=== PATIENT | male | born 1995 | race Asian ===

== ENCOUNTER 2017-08-22 02:08 | Emergency (ER) | payer OTHER ==
[2017-08-22 02:14] VITALS: BP 117/85; PULSE 67; RESP 18; TEMP 97.9; O2SAT 96
[2017-08-22] MEDS ORDERED: ACETAMINOPHEN 500 MG TAB ONE (02:19)
[2017-08-22] MEDS ORDERED: ACETAMINOPHEN 500 MG TAB PO ONE (02:20)
--- NOTE | 2017-08-22 02:22 | EDPHY ---
H & P Stated Complaint: HIT HEAD WITH SOMEONE ELSE HEAD WHILE PLAYING [employer] Time Seen by Provider: 08/22/17 02:15 HPI/ROS: Chief Complaint: Head injury, headache HPI: 22-year-old male collided with another player while playing [employer] yesterday. He struck to his right forehead on the other player. Did not have a loss of consciousness but he has had persistent headache and some mild nausea since that time. He is not taking any medications. No neck pain. No numbness or weakness. No vomiting. ROS: 10 point Review of Systems is negative except as noted in the HPI. PMH: Denies Social History: No smoking, no alcohol, no recreational drug use Family History: non-contributory Physical Exam: Gen: Awake, Alert, Airway Intact HEENT: Head: Mild right orbital ridge tenderness without step-offs or deformity Eyes: PERRLA, EOMI Nose: No epistaxis Mouth: Normal dentition, Airway patent Face: No deformity Neck: non-tender, no stepoff, Full ROM without pain Chest: non-tender, lungs CTA Heart: normal heart tones Abd: soft, non-tender, atraumatic Pelvis: non-tender, stable to AP and Lateral compression Back: atraumatic, no midline tenderness Ext: atramatic, full ROM Skin: no rash Neuro: CN II-XII intact, Strength 5/5 in all extremities, sensation intact in all extremities - Personal History Current Tetanus/Diphtheria Vaccine: Yes Current Tetanus Diphtheria and Acellular Pertussis (TDAP): Yes - Medical/Surgical History Hx Asthma: Yes Hx Chronic Respiratory Disease: No Hx Diabetes: No Hx Cardiac Disease: No Hx Renal Disease: No Hx Cirrhosis: No Hx Alcoholism: No Hx HIV/AIDS: No Hx Splenectomy or Spleen Trauma: No Other PMH: DENIES - Social History Smoking Status: Never smoked Constitutional: Initial Vital Signs Temperature (C) 36.6 C 08/22/17 02:10 Heart Rate 67 08/22/17 02:10 Respiratory Rate 18 08/22/17 02:10 Blood Pressure 117/85 H 08/22/17 02:10 O2 Sat (%) 96 08/22/17 02:10 O2 Delivery Mode Room Air Allergies/Adverse Reactions: No Known Allergies Allergy (Unverified 08/22/17 02:14) Home Medications: Medication Instructions Recorded Albuterol [Ventolin Hfa Inhaler] 200 puffs 08/22/17 Medical Decision Making ED Course/Re-evaluation: 21-year-old male struck his head yesterday. Did not have a loss of conscious. Has a mild headache and mild nausea. No indication for CT scanning at this time. Will discharge with head injury instructions. He will follow up with [facility] in a couple days. Departure - Departure Disposition: Home, Routine, Self-Care Clinical Impression: Head injury Condition: Good Instructions: Head Injury (ED) Additional Instructions: Do not engage in any activities or you might injury your head until you been without any headache or other symptoms for at least a week. Follow up at [facility] in 2-3 days for further evaluation. Return to the emergency department for worsening headache, nausea or vomiting, confusion, or any other concerns. Referrals: ESTRELLA Strickland,. [Clinic] - As per Instructions
== END 2017-08-22 02:26 | disposition home or self-care (01) ==
DX: S09.90XA Unspecified injury of head, initial encounter (principal); W50.0XXA Accidental hit or strike by another person, initial encounter; Y93.74 Activity, frisbee

== ENCOUNTER → 2018-06-27 | Outpatient (CLI) | payer BC, OTHER | LOC: FIMAGING 18:09 | PROVIDERS: ATTEND Nurse Practitioner Family | DX: M79.672 Pain in left foot (principal) ==